=== PATIENT | female | born 1950 | race Caucasian/White ===

== ENCOUNTER 2020-01-30 03:39 | Emergency (ER) | payer OTHER ==
[~2020-01-30] VITALS: Ht 160 cm; Wt 46.7 kg
[2020-01-30] MEDS ORDERED: NORVASC 2.5 MG2.5 M1 PO (03:54)
[2020-01-30] MEDS ORDERED: FOSAMAX 70 MG T70 MG PO (03:54)
[2020-01-30] MEDS ORDERED: LIPITOR80 MG PO (03:54)
[2020-01-30] MEDS ORDERED: LEVAQUIN 500 M500 M3 PO (03:55)
[2020-01-30] MEDS ORDERED: SINUS RINSE PR1 EACH NASAL (03:55)
[2020-01-30] MEDS ORDERED: FLOVENT HFA 4444 MCG INH (03:55)
[2020-01-30] MEDS ORDERED: MECLIZINE HCL25 M1 PO (04:53)
[2020-01-30] MEDS ORDERED: ZOFRAN ODT4 MG PO (04:53)
[2020-01-30 05:57] VITALS: BP 132/71
--- NOTE | 2020-01-30 11:34 | EKG ---
[facility] [place] [address] ELECTROCARDIOGRAM REPORT Name: ORLANDO FLORES Room #: DEP [facility]#: [id number] Admission: 01/30/20 Attend Phys: Discharge: 01/30/20 Date of : 50 Report #: [id number] THIS REPORT FOR: cc: Paulette Holden K. Steven DO Couchonnal, Luis F. MD ~ THIS REPORT FOR: //name// [facility] ED Test Date: 2020-01-30 Test Time: 03:50:24 Pat Name: ORLANDO FLORES Department: Room: Gender: Cancer Registry Manager: [place] [id number] : 1950 Requested By: Knezie Lopez Order Number: [id number] MD: Lavelle Bolivar Measurements Intervals [place] Rate: 72 P: 71 RI: 168 QRS: 24 QRSD: 91 T: 29 QT: 392 QTc: 430 Interpretive Statements Sinus rhythm Compared to ECG 04/28/1992 18:49:00 Right-axis deviation no longer present Electronically Signed On 01-30-2020 11:32:42 CDT by Lavelle Bolivar [email or web address] <ELECTRONICALLY SIGNED> By: Lavelle Bolivar MD 01/30/20 1132 [id number] [id number] Lavelle Bolivar MD /EPI
== END 2020-01-30 05:59 | disposition home or self-care (01) ==
LOC: ER 03:39
DX: R42 Dizziness and giddiness (principal); R11.10 Vomiting, unspecified; Z79.899 Other long term (current) drug therapy